=== PATIENT | female | born 2000 | race African-American/Black ===

== ENCOUNTER 2023-04-25 02:25 | Emergency (ER) | payer OTHER, SELFPAY ==
--- NOTE | ~2023-04-25 | CT_ITS ---
EXAMINATION: CT brain wo con DATE: 04/25/2023 03:53 INDICATION: Head injury. Headache. TECHNIQUE: Computed tomography (CT) of the head was performed without intravenous contrast. The mA wa s adjusted according to patient size. Iterative reconstruction technique was employed. The dose-lengt h product was 681.00 mGy-cm. COMPARISON: None FINDINGS: There is no intracranial hemorrhage, acute infarction, or abnormal intracranial mass lesion . The ventricles are normal in size. The orbits are normal. There is mild mucosal thickening in the e thmoid sinuses. The mastoid air cells are normal. IMPRESSION: 1. Normal brain. Reviewed, dictated and finalized at location A. IMPRESSION: 1. Normal brain.
--- NOTE | ~2023-04-25 | CT_ITS ---
EXAMINATION: CT cervical spine wo con DATE: 04/25/2023 03:53 INDICATION: Head injury. TECHNIQUE: Computed tomography (CT) of the cervical spine was performed without intravenous contrast. Automated exposure control and iterative reconstruction technique were employed. The dose-length pro duct was 405.88 mGy-cm. COMPARISON: None FINDINGS: There is 4 degrees dextrocurvature of cervicothoracic spine. There is mild kyphosis of cerv ical spine. Vertebral body heights and intervertebral disc heights are normal. At C7-T1, there is mil d right facet joint osteoarthritis. No neural foraminal stenosis or central canal stenosis. IMPRESSION: 1. No fracture. Reviewed, dictated and finalized at location A. IMPRESSION: 1. No fracture.
[2023-04-25 02:31] VITALS: BP 100/67; PULSE 80; RESP 14; TEMP 36.2; O2SAT 100
[2023-04-25 04:26] VITALS: PULSE 72; RESP 15; TEMP 36.6; O2SAT 100
[2023-04-25 04:44] VITALS: BP 104/76; PULSE 65; RESP 15; O2SAT 98
[2023-04-25] MEDS: IBUPROFEN 400 MG TABLET 800 MG PO (05:24)
[2023-04-25] MEDS: ACETAMINOPHEN 500 MG TABLET 1000 MG PO (05:25)
[2023-04-25] MEDS: methocarbamoL 750 MG TABLET 1500 MG PO (05:25)
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
[2023-04-25 06:46] VITALS: BP 106/83; PULSE 81; RESP 16; TEMP 36.4; O2SAT 100
== END 2023-04-25 06:47 | disposition home or self-care (01) ==
PROVIDERS: Emergency Provider Emergency Medicine
DX: M54.2 Cervicalgia (principal); V49.49XA Driver injured in collision with other motor vehicles in traffic accident, initial encounter; W22.11XA Striking against or struck by driver side automobile airbag, initial encounter
CPT/HCPCS: 70450; 72125; 99284; A9270